=== PATIENT | female | born 1985 | race Caucasian/White ===

== ENCOUNTER 2020-07-07 00:12 | Emergency (ER) | payer OTHER, SELFPAY ==
[2020-07-07 00:25] VITALS: BP 126/71; PULSE 100; RESP 18; TEMP 36.3; O2SAT 100; BMI 42.0
--- NOTE | 2020-07-07 01:46 | W.ED.DENTAL ---
HPI - Dental/Oral General: Chief complaint: Dental/Oral Stated complaint: face pain, broken tooth Time Seen by Provider: 07/07/20 00:14 History of Present Illness: HPI Narrative: Patient is a 35-year-old female comes to the ED with dental pain. Patient says she has been having this dental pain since Saturday, July 02. She states she has multiple bad teeth but tooth #4 is where all her pain currently comes from. She rates her pain currently an 8 out of 10. She says is making her right maxillary side of her face hurt. She has tried viscous lidocaine, Tylenol and Aleve to help with pain. She has contacted several dentists and is trying to get an appointment set up. Associated symptoms: Denies fever(s) or odynophagia Review of Systems Const: Denies: fever(s), chills or fatigue Eyes: Denies: change in vision or eye discomfort ENMT: Reports: dental pain (Tooth #4); Denies: throat pain, odynophagia, nasal discharge or nasal congestion Card: Denies: chest pain, palpitations, edema, swelling of feet/ankles, dyspnea on exertion or orthopnea Resp: Denies: dyspnea, productive cough or non-productive cough GI: Denies: abdominal pain, nausea, vomiting, diarrhea, constipation or hematochezia : Denies: flank pain, dysuria or hematuria Musc: Denies: neck pain, back pain or extremity swelling Skin/Breast: Denies: rash or new lesions Neuro: Denies: headache(s), numbness in extremities or weakness in extremities [facility] ED PFSH: Medical History Essential (primary) hypertension PCO (polycystic ovaries) Surgical History No history of previous surgery Family History Mother Cancer ovaries Grandfather Diabetes Hypertension Grandmother Diabetes Hypertension Social History Smoking and tobacco status: current every day smoker cigarettes Alcohol intake: never Lives independently: Yes Household members: spouse and children Housing: House Marital status: Number of children: 1 Current gender identity: Female Physical Exam Const: COMMON NORMALS: no acute distress, patient oriented x3 and alert GENERAL APPEARANCE: cooperative and comfortable NUTRITIONAL APPEARANCE: obese HENMT: COMMON NORMALS: normocephalic HEAD & SCALP: normocephalic MOUTH: Normal oral and palatal mucosa present TEETH & GINGIVA: Yes abnormal tooth and associated gingiva upper right first bicuspid tender and Yes caries (Multiple dental caries but more extensive decay on tooth #4.) THROAT: posterior oropharynx normal and uvula midline Neck/C-Spine: COMMON NORMALS: supple GENERAL: Yes normal visual inspection Resp: COMMON NORMALS: normal respiratory effort, No retractions, No use of accessory muscles and clear to auscultation bilaterally AUSCULTATION: clear to auscultation bilaterally Cardio: COMMON NORMALS: regular rate, regular rhythm, S1 normal heart sound present, S2 normal heart sound present, No gallops present (Cardio), No clicks present (Cardio), No murmurs present (Cardio) and Peripheral pulses 2+ throughout RATE: regular rate RHYTHM: regular rhythm HEART SOUNDS: S1 normal heart sound present and S2 normal heart sound present PERIPHERAL PULSES: Peripheral pulses 2+ throughout GI: COMMON NORMALS: Normal to inspection, nondistended, normoactive bowel sounds present, Soft to palpation, non-tender and no masses PALPATION: Yes Soft to palpation : COMMON NORMALS: Yes no CVA tenderness BLADDER/KIDNEY EXAM: Yes no CVA tenderness Back/Pelvis: COMMON NORMALS: no CVA tenderness Extremity: COMMON NORMALS: normal to inspection Neuro: COMMON NORMALS: patient oriented x3 and moves all extremities SENSORIUM/ORIENTATION: Yes alert Skin: GENERAL SKIN EXAM: dry skin Course Vital Signs: Vital signs: Vital Signs Temperature 97.4 F L 07/07/20 00:25 Pulse Rate 100 07/07/20 00:25 Respiratory Rate 18 07/07/20 00:25 Blood Pressure 126/71 07/07/20 00:25 Pulse Oximetry 100 07/07/20 00:25 MDM - Dental/Oral MDM Narrative: Medical decision making narrative: Patient is a 35-year-old female comes to the ED with dental pain. She has been trying to get in to see a dentist and is working on getting an appointment scheduled. Exam shows extensive dental carry and decay to tooth #4. Patient was given dose of hydrocodone while here in the ED along with clindamycin. Patient diagnosed with pain due to dental caries and discharged home with a prescription for ibuprofen 800 mg tablets and clindamycin. She was told to contact the dentist to get appointment scheduled for further evaluation. Return to ED precautions given. Patient understood agree with plan. Discharge Plan Discharge Patient Disposition: Home Clinical Impression: Pain due to dental caries Condition: Stable Prescriptions: New ibuprofen 800 mg tablet 800 mg PO Q8H PRN (Reason: pain) Qty: 20 RF: 0 clindamycin HCl 150 mg capsule 300 mg PO QID 7 Days Qty: 56 RF: 0 No Action escitalopram oxalate [Lexapro] 20 mg tablet 20 mg PO DAILY RF: 0 metoprolol tartrate 50 mg tablet 50 mg PO Q12H RF: 0 povidone-iodine [Betadine Swabsticks] 10 % swab 1 applic topical ONCE Qty: 1 RF: 0 sulfamethoxazole-trimethoprim [Bactrim] 400-80 mg tablet 1 tab PO BID 7 Days Qty: 14 RF: 0 Discharge Orders: Discharge ED (Routine); Ordered 07/07/20 Ordered By: Navjot Calvert Referrals: Pa Harrington MD [Primary Care Provider] - Discharge Diet: Regular Discharge Activity: Resume usual activity Patient Instructions: Dental Caries (ED) Activity Restrictions/Additional Instructions: Call dentist and schedule and appointment to get dental pain addressed. Take medications as prescribed. Return to the ER or your medical provider if condition worsens. Please read and understand discharge instructions. If any questions, please ask. Coding Level of Care Code ED Real Estate Underwriter for Lexis Fwd Exam Comprehensive
[2020-07-07] MEDS: HYDROcodone-acetaminophen 7.5-325 mg Tablet 1 TAB PO (02:10)
[2020-07-07] MEDS: clindamycin 150 mg Capsule 300 MG PO (02:10)
[2020-07-07 02:14] VITALS: BP 126/71; PULSE 84; RESP 18; O2SAT 99
== END 2020-07-07 02:15 | disposition home or self-care (01) ==
PROVIDERS: Emergency Provider Physician Assistant; PCP Family Medicine
DX: K02.9 Dental caries, unspecified (principal); I10 Essential (primary) hypertension; F17.210 Nicotine dependence, cigarettes, uncomplicated
CPT/HCPCS: 99283

== ENCOUNTER → 2020-09-06 12:14 | Outpatient (BNVA) | payer OTHER, SELFPAY | PROVIDERS: PCP Family Medicine; Visit Provider Nurse Practitioner Family | DX: Z20.822 Contact with and (suspected) exposure to COVID-19 (principal) | CPT/HCPCS: 87635 ==

== ENCOUNTER → 2021-10-19 14:58 | Outpatient (BNVA) | payer OTHER, SELFPAY | PROVIDERS: PCP Family Medicine; Visit Provider Emergency Medicine | DX: J06.9 Acute upper respiratory infection, unspecified (principal); Z20.822 Contact with and (suspected) exposure to COVID-19 | CPT/HCPCS: 87426 ==

== ENCOUNTER → 2023-04-16 14:01 | Outpatient (BNVA) | payer MEDICAID, SELFPAY | PROVIDERS: PCP Family Medicine; Visit Provider Family Medicine | DX: E11.9 Type 2 diabetes mellitus without complications (principal) | CPT/HCPCS: 80053; 80061; 83721; 85025 ==

== ENCOUNTER → 2023-04-18 11:10 | Outpatient (BNVA) | payer MEDICAID, SELFPAY | PROVIDERS: PCP Family Medicine; Visit Provider Family Medicine | DX: E11.9 Type 2 diabetes mellitus without complications (principal); I10 Essential (primary) hypertension | CPT/HCPCS: 83036; 85025 ==

== ENCOUNTER → 2023-05-15 11:00 | Outpatient (BNVA) | payer MEDICAID, SELFPAY | PROVIDERS: PCP Family Medicine; Referring Provider Family Medicine; Visit Provider Nurse Practitioner Women's Health | DX: Z12.4 Encounter for screening for malignant neoplasm of cervix (principal); E28.2 Polycystic ovarian syndrome; N92.6 Irregular menstruation, unspecified | CPT/HCPCS: 82670; 83001; 84146; 84402; 84439; 84443; 84481; 84702; 87624 ==

== ENCOUNTER → 2023-06-05 10:09 | Outpatient (BNVA) | payer MEDICAID, SELFPAY | PROVIDERS: PCP Family Medicine; Visit Provider Nurse Practitioner Women's Health | DX: N91.2 Amenorrhea, unspecified (principal) | CPT/HCPCS: 76830; 84402 ==

== ENCOUNTER → 2023-06-12 09:54 | Outpatient (BNVA) | payer MEDICAID, SELFPAY | PROVIDERS: PCP Family Medicine; Visit Provider Nurse Practitioner Women's Health | DX: E28.2 Polycystic ovarian syndrome (principal); N91.2 Amenorrhea, unspecified; N93.9 Abnormal uterine and vaginal bleeding, unspecified | CPT/HCPCS: 81025; 88305 ==

== ENCOUNTER → 2023-08-27 11:55 | Outpatient (BNVA) | payer MEDICAID, SELFPAY | PROVIDERS: PCP Family Medicine; Visit Provider Family Medicine | DX: E11.9 Type 2 diabetes mellitus without complications (principal); E66.01 Morbid (severe) obesity due to excess calories; Z68.42 Body mass index [BMI] 45.0-49.9, adult; E55.9 Vitamin D deficiency, unspecified | CPT/HCPCS: 80053; 82306; 83036 ==

== ENCOUNTER 2023-11-26 06:00 | Outpatient (CLI) | payer MEDICAID, SELFPAY | END 2023-11-26 06:01 | disposition home or self-care (01) | LOC: SLEEP 11-27 13:37 | DX: E11.9 Type 2 diabetes mellitus without complications (principal); B37.31 Acute candidiasis of vulva and vagina | CPT/HCPCS: 80053; 81000; 83036 ==

== ENCOUNTER 2024-04-18 12:38 | Emergency (ER) | payer SELFPAY ==
[2024-04-18 12:59] VITALS: BP 129/84; PULSE 79; RESP 16; TEMP 36.8; O2SAT 97; BMI 44.8
--- NOTE | 2024-04-18 13:08 | ECG_ITS ---
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 Measurements Intervals [place] Rate: 84 P: 60 PA: 152 QRS: 47 QRSD: 92 T: 32 QT: 366 QTc: 435 Interpretive Statements SINUS RHYTHM LOW QRS VOLTAGE IN PRECORDIAL LEADS [QRS DEFLECTION < 1.0 mV IN CHEST LEADS] INCOMPLETE RIGHT BUNDLE BRANCH BLOCK [90+ ms QRS DURATION, TERMINAL R IN V1/V2, 40+ ms S IN I/aVL/V4/V5/V6] Compared to ECG 11/27/2017 16:12:41 Low QRS voltage now present Incomplete right bundle-branch block now present Sinus tachycardia no longer present T-wave abnormality no longer present Electronically Signed On 04-18-2024 22:59:38 SUPERVISORY TRAINING SPECIALIST by Navid To M.D. [email or web address]
[2024-04-18 13:15] LABS: Glucose Point of Care 125 mg/dL (70-110)
[2024-04-18 14:47] LABS: Basophils % 0.3 %; Eosinophils # 0.3 10^3/uL (0.0-0.8); Eosinophils % 2.8 %; Hematocrit 43.9 % (36-47); Lymphocytes # 3.2 10^3/uL (0.8-4.8); Lymphocytes % 30.5 %; Mean Corpuscular Hemoglobin 30.4 pg (27-33); Monocytes # 0.5 10^3/uL (0.2-0.9); Monocytes % 4.8 %; Neutrophils # 6.42 10^3/uL (1.8-7.7); Neutrophils % 61.2 %; Nucleated Red Blood Cells % 0 %; Platelet Count 238 10^3/cmm (157-399); Red Blood Count 4.77 10^6/uL (3.85-5.65); Red Cell Distribution Width 11.9 % (12.1-15.1); White Blood Count 10.48 10^3/uL (3.29-11.43)
[2024-04-18 15:04] LABS: Alanine Aminotransferase 49 U/L (0-33); Albumin Level 3.8 g/dL (3.5-5.2); Alkaline Phosphatase 68 U/L (35-105); Anion Gap 14.2 (5-19); Aspartate Amino Transferase 34 U/L (0-32); Blood Urea Nitrogen 8 mg/dL (6-20); Calcium 8.7 mg/dL (8.5-10.5); Carbon Dioxide 28 mmol/L (22-29); Chloride 98 mmol/L (98-107); Globulin 3.3 g/dL (1.3-4.6); Glomerular Filtration Rate 138.8 mL/min (90-130); Glucose 136 mg/dL (65-115); Osmolality Calculated 282 mOsm/kg (285-295); Potassium 4.2 mmol/L (3.5-5.1); Sodium 136 mmol/L (136-145); Total Bilirubin 0.3 mg/dL (0.15-1.2); Total Protein 7.1 g/dL (6.6-8.7)
--- NOTE | 2024-04-18 15:07 | ED_ITS ---
HPI - Headache 2 General: Chief Complaint: Headache Stated Complaint: dizziness Time Seen by Provider: 04/18/24 14:59 Source: patient Mode of arrival: ambulatory Limitations: no limitations History of Present Illness: Patient is a 39-year-old female presents to ED today with complaint of a headache. She states last week she had a flu like illness consisting of fevers, body aches, sore throat, headache, congestion. She states all of her symptoms have gone away apart from her headache that has persisted and worsened over the past 2 days. Headache is located to the right side of her head and down into the right side of her neck and shoulder. Pain is worse with movement. She does report feeling dizzy. Despite her dizziness, she was able to easily drive herself here to the emergency department and was ambulatory back to her room without difficulty or assistance. MD elicited complaint: headache Onset (ago): day(s) Onset description: gradually Location: right, frontal and down into neck Severity: severe Pain scale (0-10): 7 Exacerbating factors: movement of head/neck Relieving factors: nothing Context: recent URI Associated symptoms: Deny chest pain, confusion, fever(s), lightheadedness, malaise, nausea, rash, syncope or vomiting Related Data Home Medications Medication Instructions Recorded Confirmed buprenorphine 8 mg-naloxone 2 mg 1 film buccal BID 09/06/20 04/18/24 sublingual film (Suboxone) prazosin 2 mg capsule 2 mg PO BID PRN bp 04/16/23 04/18/24 linaclotide 145 mcg capsule 150 mcg PO QAM 04/18/24 04/18/24 (Linzess) metformin 500 mg tablet,extended 500 mg PO DAILY 04/18/24 04/18/24 release 24 hr ondansetron HCl 4 mg tablet 4 mg PO Q6H PRN Nausea 04/18/24 04/18/24 Previous Rx's Medication Instructions Recorded Lancets #100 ea 04/19/23 blood glocose meter #1 ea 04/19/23 blood glucose test strips #100 ea 04/19/23 brexpiprazole 2 mg tablet 2 mg PO DAILY #30 tabs 06/14/23 gabapentin 300 mg capsule 300 mg PO BID #60 caps 11/26/23 lisinopril 10 mg tablet 10 mg PO DAILY #30 tabs 11/26/23 metoprolol succinate 50 mg 50 mg PO DAILY #90 tabs 11/26/23 tablet,extended release 24 hr escitalopram oxalate 20 mg tablet 20 mg PO DAILY #30 tabs 02/18/24 (Lexapro) Allergies Allergy/AdvReac Type Severity Reaction Status Date / Time Penicillins Allergy ALGY-Rash Verified 04/18/24 13:04 Review of Systems 2 Const: Denies: fever(s), chills, body aches, fatigue or malaise Eyes: Denies: change in vision, blurry vision, photophobia, floaters or seeing flashes Card: Denies: chest pain, palpitations, irregular heart rhythm, lightheadedness, syncope or dyspnea on exertion Resp: Denies: dyspnea, productive cough or pain on inspiration GI: Denies: abdominal pain, nausea, vomiting, heartburn or diarrhea : Denies: dysuria Musc: Reports: neck pain; Denies: back pain or joint pain Skin/Breast: Denies: rash Neuro: Reports: headache(s) and dizziness; Denies: numbness in extremities, weakness in extremities, sensory changes, difficulty walking or confusion PFSH ED 2 PFSH: Medical History Hypersomnia Candidal vulvovaginitis No pertinent past medical history neghx: thyroid,dvt/pe PCP: Dr. Maya Opiate addiction LORENZO (generalized anxiety disorder) Major depressive disorder Type 2 diabetes mellitus, without long-term current use of insulin PCO (polycystic ovaries) Essential (primary) hypertension Surgical History No history of previous surgery Family History Mother Uterine cancer, Onset Age: 27 Grandfather Diabetes Hypertension Grandmother Diabetes Hypertension Thyroid disease Father Diabetes Hypertension Hyperlipidemia Denies family history of Ovarian cancer Prostate cancer Heart disease Stroke Social History Smoking and tobacco/nicotine status: current every day tobacco/nicotine user cigarettes Packs smoked per day: 0.75 Alcohol intake: never Substance/Drug Use: never Adopted: No service: No Current occupational exposures/hazards: No Physical Exam 2 Const: COMMON NORMALS: no acute distress, patient oriented x3, no limitations, alert and well nourished GENERAL APPEARANCE: cooperative NUTRITIONAL APPEARANCE: obese morbidly obese (BMI 44.8) ORIENTATION/CONSCIOUSNESS: Yes awake, Yes oriented to person, Yes oriented to place and Yes oriented to time HENMT: COMMON NORMALS: normocephalic and atraumatic HEAD & SCALP: normal to inspection, normocephalic and atraumatic FACE & SINUS: normal facial exam, sinuses nontender and face symmetric Eye: COMMON NORMALS: Equal, round and reactive pupils present and EOMs intact bilaterally GENERAL EYE: appearance normal, both eyes and all related structures and normal light reflex PUPIL: Yes Equal, round and reactive pupils present DIRECT OPHTHALMOSCOPY: Yes normal light reflex OTHER: no nystagmus Neck/C-Spine: COMMON NORMALS: full ROM, no lymphadenopathy, supple and no meningeal signs GENERAL: Yes normal visual inspection CERVICAL SPINE: Yes cervical ROM normal, No Cervical spine tenderness, No step off deformity and Yes Trapezius muscle tenderness right Chest: COMMONS NORMALS: normal inspection of the chest Resp: COMMON NORMALS: normal respiratory effort and clear to auscultation bilaterally AUSCULTATION: clear to auscultation bilaterally Cardio: COMMON NORMALS: regular rate and regular rhythm RATE: regular rate RHYTHM: regular rhythm Back/Pelvis: COMMON NORMALS: thoracic and lumbar spine normal to inspection Extremity: COMMON NORMALS: normal to inspection, no clubbing, cyanosis or edema, no calf tenderness and no pedal edema GENERAL: Yes normal exam except as noted Neuro: STACIE COMA SCALE: document GCS findings [place]hall coma scale eye opening: Spontaneous Stacie coma scale verbal response: Orientated [place] coma scale motor response: Obey commands [place]hall coma scale total score: 15 COMMON NORMALS: patient oriented x3, CN's II-XII intact bilaterally, moves all extremities, no focal motor deficits, no sensory deficits noted and gait normal SENSORIUM/ORIENTATION: Yes alert, Yes oriented to person, Yes oriented to place and Yes oriented to time MENINGEAL SIGNS: Yes no meningeal signs Skin: COMMON NORMALS: no rashes or lesions noted GENERAL SKIN EXAM: no rashes or lesions noted Course 2 Vital Signs: Vital signs: Vital Signs Temperature 98.2 F 04/18/24 12:59 Pulse Rate 70 04/18/24 15:30 Respiratory Rate 16 04/18/24 15:30 Blood Pressure 137/86 04/18/24 15:30 Pulse Oximetry 97 04/18/24 15:30 Oxygen Delivery Me thod Room Air 04/18/24 15:30 MDM - Headache Medical Decision Making Patient here with a main complaint of a headache. She clinically appears no acute distress. Her vital signs are stable. Her blood work overall is nonactionable. Headache upon arrival to the emergency department was 7. Following medications administered here, she is now completely pain-free. She feels comfortable going home at this time. Return to ED precautions discussed. Differential Diagnosis Likely migraine, tension headache and headache Medical Records I reviewed the patient's medical records. Lab Data I reviewed the patient's lab results. 04/18/24 14:40 04/18/24 14:40 Laboratory Results WBC 10.48 10^3/uL (3.29-11.43) 04/18/24 14:40 RBC 4.77 10^6/uL (3.85-5.65) 04/18/24 14:40 Hgb 14.50 g/dL (11.27-16.99) 04/18/24 14:40 Hct 43.9 % (36-47) 04/18/24 14:40 MCV 92.0 fl (85-98) 04/18/24 14:40 MCH 30.4 pg (27-33) 04/18/24 14:40 MCHC 33.0 g/dL (30-55) 04/18/24 14:40 RDW 11.9 % (12.1-15.1) L 04/18/24 14:40 Plt Count 238 10^3/cmm (157-399) 04/18/24 14:40 MPV 10.0 fL (7.4-10.4) 04/18/24 14:40 Neut % (Auto) 61.2 % 04/18/24 14:40 Lymph % (Auto) 30.5 % 04/18/24 14:40 Andrew % (Auto) 4.8 % 04/18/24 14:40 Eos % (Auto) 2.8 % 04/18/24 14:40 Baso % (Auto) 0.3 % 04/18/24 14:40 Neut # (Auto) 6.42 10^3/uL (1.8-7.7) 04/18/24 14:40 Lymph # (Auto) 3.2 10^3/uL (0.8-4.8) 04/18/24 14:40 Andrew # (Auto) 0.5 10^3/uL (0.2-0.9) 04/18/24 14:40 Eos # (Auto) 0.3 10^3/uL (0.0-0.8) 04/18/24 14:40 Baso # (Auto) 0.0 10^3/uL (0.0-0.1) 04/18/24 14:40 Nucleated RBC % (auto) 0 % 04/18/24 14:40 Nucleated RBCs # 0.0 /100WBC 04/18/24 14:40 Sodium 136 mmol/L (136-145) 04/18/24 14:40 Potassium 4.2 mmol/L (3.5-5.1) 04/18/24 14:40 Chloride 98 mmol/L (98-107) 04/18/24 14:40 Carbon Dioxide 28 mmol/L (22-29) 04/18/24 14:40 Anion Gap 14.2 (5-19) 04/18/24 14:40 BUN 8 mg/dL (6-20) 04/18/24 14:40 Creatinine 0.5 mg/dL (0.5-0.9) 04/18/24 14:40 GFR Calculation 138.8 mL/min (90-130) H 04/18/24 14:40 Glucose 136 mg/dL (65-115) H 04/18/24 14:40 POC Glucose 125 mg/dL (70-110) H 04/18/24 13:12 Calculated Osmolality 282 mOsm/kg (285-295) L 04/18/24 14:40 Calcium 8.7 mg/dL (8.5-10.5) 04/18/24 14:40 Total Bilirubin 0.3 mg/dL (0.15-1.2) 04/18/24 14:40 AST 34 U/L (0-32) H 04/18/24 14:40 ALT 49 U/L (0-33) H 04/18/24 14:40 Alkaline Phosphatase 68 U/L (35-105) 04/18/24 14:40 Total Protein 7.1 g/dL (6.6-8.7) 04/18/24 14:40 Albumin 3.8 g/dL (3.5-5.2) 04/18/24 14:40 Globulin 3.3 g/dL (1.3-4.6) 04/18/24 14:40 No radiology studies performed this visit Discharge Plan Discharge Patient Disposition: Home Clinical Impression: Headache Qualifiers: Headache type: unspecified Headache chronicity pattern: acute headache I ntractability: not intractable Qualified Code(s): R51.9 - Headache, unspecified Condition: Stable Prescriptions: No Action buprenorphine-naloxone [Suboxone] 8-2 mg film 1 film buccal BID gabapentin 300 mg capsule 300 mg PO BID Qty: 60 3RF lisinopril 10 mg tablet 10 mg PO DAILY Qty: 30 5RF metoprolol succinate 50 mg tablet extended release 24 hr 50 mg PO DAILY Qty: 90 0RF prazosin 2 mg capsule 2 mg PO BID PRN (Reason: bp) brexpiprazole 2 mg tablet 2 mg PO DAILY Qty: 30 1RF (DME) blood glocose meter See Rx Instructions .Route .MEDSUPPLY Qty: 1 0RF Rx Instructions: use for blood glucose testing daily (DME) blood glucose test strips See Rx Instructions .Route .MEDSUPPLY Qty: 100 0RF Rx Instructions: for blood glucose testing once daily (DME) Lancets See Rx Instructions .Route .MEDSUPPLY Qty: 100 0RF Rx Instructions: use for blood glucose testing once daily escitalopram oxalate [Lexapro] 20 mg tablet 20 mg PO DAILY Qty: 30 1RF ondansetron HCl 4 mg tablet 4 mg PO Q6H PRN (Reason: Nausea) metformin 500 mg tablet extended release 24 hr 500 mg PO DAILY Linzess 145 mcg capsule 150 mcg PO QAM Discharge Orders: Discharge ED (Routine); Ordered 04/18/24 Ordered By: Merlene Boyce Referrals: Selena Storey NP [Primary Care Provider] - Activity Restrictions/Additional Instructions: As we discussed, you have indicated you are pain-free at time of discharge today. You may follow-up with primary care next week if symptoms persist. You need to return to the emergency department for onset of severe/worsening headache, fevers, repetitive episodes of vomiting, severe neck pain or stiffness, generally feeling worse or unwell, or any other concerns you may have. I hope you begin to feel better soon. Coding Level of Care Code ED Air Traffic Instructor for Chg Fwd
[2024-04-18 15:30] VITALS: BP 137/86; BP 139/86; BP 140/94; BP 141/85; PULSE 68; PULSE 70; PULSE 75; PULSE 79; RESP 16; O2SAT 97
[2024-04-18] MEDS: ondansetron 2 mg/ML SDV 2 mL 4 MG IVP (16:00)
[2024-04-18] MEDS: ketorolac 60 mg/2 mL INJ 30 MG IVP (16:00)
[2024-04-18] MEDS: diphenhydrAMINE 50 mg/mL SDV 1mL IVP (16:01)
[2024-04-18] MEDS: orphenadrine 30 mg/mL Inj 2 mL 60 MG IVP (16:01)
[2024-04-18 16:51] VITALS: BP 123/86; PULSE 69; RESP 16; O2SAT 94
== END 2024-04-18 16:48 | disposition home or self-care (01) ==
PROVIDERS: Family Medicine; Emergency Provider Physician Assistant
DX: R51.9 Headache, unspecified (principal); Z79.84 Long term (current) use of oral hypoglycemic drugs; F17.210 Nicotine dependence, cigarettes, uncomplicated; E11.9 Type 2 diabetes mellitus without complications; I10 Essential (primary) hypertension
CPT/HCPCS: 36416; 80053; 82962; 85025; 93005; 96374; 96375; 99284; J1200; J1885; J2360; J2405

== ENCOUNTER → 2024-08-06 14:29 | Outpatient (BNVA) | payer OTHER, SELFPAY | DX: E11.9 Type 2 diabetes mellitus without complications (principal) | CPT/HCPCS: 80053; 83036 ==